=== PATIENT | male | born 1970 | race African-American/Black ===

== ENCOUNTER 2016-07-19 09:05 | Inpatient (IN) | payer OTHER ==
[2016-07-19 09:31] VITALS: BMI 24.8
--- NOTE | 2016-07-19 10:44 | HP ---
COWS - Scale Resting Pulse: 1= [place] 81-100 Sweatin= Chills/Flushing Restless Observation: 1= Difficult to Sit Still Pupil Size: 1= Pupils >than Normal Bone or Joint Aches: 2= Severe Diffuse Aches Runny Nose/ Eye Tearin= Runny Nose/Eyes GI Upset > 30mins: 3= Vomiting/Diarrhea Tremor Observation: 4= Gross Tremor/Twitching Yawning Observation: 1= 1-2x During Session Anxiety or Irritability: 2=Irritable/Anxious Goose Flesh Skin: 3=Piloerection COWS Score: 21 CIWA Score - CIWA Score Nausea/Vomitin Muscle Tremors: 4-Moderate,w/Arms Extend Anxiety: 2 Agitation: 1-Slight > Activity Paroxysmal Sweats: 3 Orientation: 0-Oriented Tacttile Disturbances: 0-None Auditory Disturbances: 0-None Visual Disturbances: 2-Mild Sensitivity Headache: 3-Moderate CIWA-Ar Total Score: 20 Admission ROS BHS - HPI Chief Complaint: "I need to get off of the drugs and stop using alcohol." Pt. is here to Detox from Alcohol and Heroin. Allergies/Adverse Reactions: Allergies Allergy/AdvReac Type Severity Reaction Status Date / Time No Known Allergies Allergy Verified 07/19/16 09:22 History of Present Illness: Pt. is here to Detox from Alcohol and Heroin. This is pt.'s first Detox [id number] at [facility]. Pt. has done detox at [facility] in past. Pt. also uses Cocaine on a daily basis. Exam Limitations: No Limitations - Ebola screening Have you traveled outside of the country in the last 21 days: No Have you had contact with anyone from an Ebola affected area: No Have you been sick,other than usual withdrawal symptoms: No Do you have a fever: No - Review of Systems Constitutional: Chills, Diaphoresis, Fever, Loss of Appetite, Malaise, Night Sweats, Changes in sleep, Unexplained wgt Loss EENT: reports: Tearing, Nose Congestion, Sinus Pressure, Dental Problems ( Toothache, lower Right side. Uncertain as to reason why.) Respiratory: reports: No Symptoms reported Cardiac: reports: No Symptoms Reported GI: reports: Constipated, Diarrhea, Nausea, Poor Appetite, Vomiting, Abdominal cramping : reports: No Symptoms Reported Musculoskeletal: reports: Back Pain Integumentary: reports: No Symptoms Reported Neuro: reports: Headache, Tremors Endocrine: reports: No Symptoms Reported Hematology: reports: No Symptoms Reported Psychiatric: reports: Judgement Intact, Mood/Affect Appropiate, Orientated x3, Anxious Other Systems: Reviewed and Negative Patient History - Patient Medical History Hx Anemia: No Hx Asthma: No Hx Chronic Obstructive Pulmonary Disease (COPD): No Hx Cancer: No Hx Cardiac Disorders: No Hx Congestive Heart Failure: No Hx Hypertension: No Hx Hypercholesterolemia: No Hx Pacemaker: No HX Cerebrovascular Accident: No Hx Seizures: No Hx Dementia: No Hx Diabetes: No Hx Gastrointestinal Disorders: No Hx Liver Disease: No Hx Genitourinary Disorders: No Hx Sexually Transmitted Disorders: No Hx Renal Disease (ESRD): No Hx Thyroid Disease: No Hx Human Immunodeficiency Virus (HIV): No (Last Tested: 2014: NEGATIVE.) Hx Hepatitis C: No (Does not recall if he was tested in past.) Hx Depression: No Hx Suicide Attempt: No (PATIENT DENIES CURRENT SI / HI.) Hx Bipolar Disorder: No Hx Schizophrenia: No - Patient Surgical History Past Surgical History: No Hx Neurologic Surgery: No Hx Cataract Extraction: No Hx Cardiac Surgery: No Hx Lung Surgery: No Hx Breast Surgery: No Hx Breast Biopsy: No Hx Abdominal Surgery: No Hx Appendectomy: No Hx Cholecystectomy: No Hx Genitourinary Surgery: No Hx Orthopedic Surgery: No Anesthesia Reaction: No - PPD History Previous Implant?: Yes Documented Results: Negative w/o proof Implanted On Prior [facility] Admission?: No PPD to be Administered?: Yes - Reproductive History Patient is a Female of Child Bearing Age (11 -55 yrs old): No (PATIENT IS MALE.) - Smoking Cessation Smoking history: Current every day smoker Have you smoked in the past 12 months: Yes Aproximately how many cigarettes per day: 15 Cigars Per Day: 0 Hx Chewing Tobacco Use: No Initiated information on smoking cessation: Yes 'Breaking Loose' booklet given: 07/19/16 (GIVEN ON UNIT.) - Substance & Tx. History Hx Alcohol Use: Yes Hx Substance Use: Yes Substance Use Type: Alcohol, Cocaine, Heroin Hx Substance Use Treatment: Yes (Previous Detox admission at [facility].) - Substances Abused Heroin Route: Inhalation Frequency: Daily Amount used: 10 bags Age of first use: 16 Date of Last Use: 07/18/16 Cocaine Route: Smoking Frequency: Daily Amount used: $20 Age of first use: 14 Date of Last Use: 07/18/16 Alcohol Route: Oral Frequency: Daily Amount used: vodka(2 pints)/beer(3 24oz cans) Family Disease History - Family Disease History Family Disease History: Diabetes: Grandparent, Father Admission Physical Exam [facility] - Vital Signs Vital Signs: Vital Signs - 24 hr 07/19/16 09:22 Temperature 96.7 F L Pulse Rate 92 H Respiratory 20 Rate Blood Pressure 146/94 - Physical General Appearance: Yes: No Apparent Distress, Nourished, Appropriately Dressed , Tremorous HEENTM: Yes: Hearing grossly Normal, Normocephalic, Normal Voice, MAGALI, Pharynx Normal, Nasal Congestion, Other (Toothache - Lower Right side - No swelling or signs of infection noted.) Respiratory: Yes: Chest Non-Tender, Lungs Clear, No Respiratory Distress Neck: Yes: No masses,lesions,Nodules, Supple, Trachea in good position Breast: Yes: Breast Exam Deferred Cardiology: Yes: Regular Rhythm, Regular Rate, S1, S2 Abdominal: Yes: Normal Bowel Sounds, Non Tender, Flat, Soft Genitourinary: Yes: Within Normal Limits Back: Yes: Decreased Range of Motion Musculoskeletal: Yes: Gait Steady, Back pain Extremities: Yes: Non-Tender, Tremors Neurological: Yes: Fully Oriented, Alert, Normal Mood/Affect, Normal Response Integumentary: Yes: Normal Color, Dry, Warm Lymphatic: Yes: Within Normal Limits - Diagnostic (1) Alcohol dependence with uncomplicated withdrawal Current Visit: Yes Status: Acute (2) Opioid dependence with withdrawal Current Visit: Yes Status: Acute (3) Cocaine dependence, uncomplicated Current Visit: Yes Status: Acute (4) Nicotine dependence Current Visit: Yes Status: Chronic Qualifiers: Nicotine product type: cigarettes Substance use status: uncomplicated Qualified Code(s): F17.210 - Nicotine dependence, cigarettes, uncomplicated (5) Toothache Current Visit: Yes Status: Acute Cleared for Admission [facility] - Detox or Rehab [facility] Level of Care: Medically Managed (ADVISED PATIENT TO FOLLOW-UP WITH FLIGHT DIRECTOR / REHAB MEDICAL PROVIDER AND DENTIST AFTER DISCHARGE FROM DETOX FOR GENERAL MEDICAL ASSESSMENT.) Detox Regimen/Protocol: Methadone/Librium [facility] Breath Alcohol Content Breath Alcohol Content: 0 Urine Drug Screen - Results Drug Screen Negative: No Urine Drug Screen Results: ARMEN-Cocaine, OPI-Opiates
[2016-07-19] MEDS ORDERED: MAG HYDROX/AL HYDROX/SIMETH 30 ML UNIT-DOSE CUP PO PRN (11:19)
[2016-07-19] MEDS ORDERED: chlordiazePOXIDE HCL 25 MG CAPSULE PO ONE (11:19)
[2016-07-19] MEDS ORDERED: IBUPROFEN 400 MG TABLET (FP) PO PRN (11:19)
[2016-07-19] MEDS ORDERED: MENTHOL/PHENOL 1 EACH UD MM PRN (11:19)
[2016-07-19] MEDS ORDERED: ACETAMINOPHEN 325 MG TABLET (FP) PO PRN (11:19)
[2016-07-19] MEDS ORDERED: LOPERAMIDE HCL 2 MG CAPSULE PO PRN (11:19)
[2016-07-19] MEDS ORDERED: chlordiazePOXIDE HCL 25 MG CAPSULE PO PRN (11:19)
[2016-07-19] MEDS ORDERED: MAGNESIUM HYDROX 2400MG/30ML ORAL SUSPENSION 30 ML CUP PO PRN (11:19)
[2016-07-19] MEDS ORDERED: METHADONE HCL 10 MG TABLET (FOR DETOX USE ONLY) PO ONE ×2 (11:19→23:00)
[2016-07-19] MEDS ORDERED: hydrOXYzine PAMOATE 50 MG CAPSULE (FP) PO PRN (11:19)
[2016-07-19] MEDS ORDERED: MAGNESIUM CITRATE 300 ML BOTTLE PO PRN (11:19)
[2016-07-19] MEDS ORDERED: NICOTINE POLACRILEX 2 MG GUM BUC PRN (11:19)
[2016-07-19] MEDS ORDERED: guaiFENesin/D-METHORPHAN HB 10 ML UNIT-DOSE CUPS PO PRN (11:19)
[2016-07-19] MEDS ORDERED: P-EPHED 60MG/TRIPROLIDI 2.5MG TABLET PO PRN (11:19)
[2016-07-19] MEDS: NICOTINE 21 MG/24 HOURS TOPICAL PATCH TD SCH (13:07)
[2016-07-19] MEDS: chlordiazePOXIDE HCL 25 MG CAPSULE PO SCH ×2 (17:53→22:26)
[2016-07-19 19:23] LABS: URINE APPEARANCE CLEAR; URINE BILIRUBIN NEGATIVE (NEGATIVE); URINE BLOOD NEGATIVE (NEGATIVE); URINE COLOR YELLOW; URINE GLUCOSE (UA) NEGATIVE (NEGATIVE); URINE KETONE NEGATIVE (NEGATIVE); URINE LEUK ESTERASE NEGATIVE (NEGATIVE); URINE NITRITE NEGATIVE (NEGATIVE); URINE UROBILINOGEN NEGATIVE E.U./dl (0.2-1.0)
[2016-07-19 19:27] LABS: URINE PROTEIN 1+ (NEGATIVE)
[2016-07-19 19:29] LABS: URINE MUCUS RARE; URINE RBC 5 /hpf (0-3); URINE WBC 2 /hpf (3-5)
[2016-07-19] MEDS: THIAMINE HCL 100 MG TABLET (FP) PO SCH (22:26)
[2016-07-19] MEDS: diphenhydrAMINE HCL 50 MG CAPSULE PO PRN (22:27)
[2016-07-20] MEDS: chlordiazePOXIDE HCL 25 MG CAPSULE PO SCH ×4 (05:56→22:35)
[2016-07-20 09:38] LABS: MCH 28.5 pg (25.7-33.7); MCHC 32.9 g/dl (32.0-35.9); MEAN CELL VOLUME 86.7 fl (80-96); MEAN PLT VOLUME 9.1 fl (7.5-11.1); PLATELET COUNT 252 K/MM3 (134-434); RDW 15.1 % (11.9-15.9); WHITE BLOOD COUNT 3.5 K/mm3 (4.0-10.0)
[2016-07-20 09:50] LABS: ALBUMIN 3.1 g/dl (3.4-5.0); BILIRUBIN,TOTAL 0.7 mg/dL (0.2-1.0); CALCIUM 8.5 mg/dL (8.5-10.1); CREATININE 1.3 mg/dL (0.7-1.3); TOT PROT 6.3 g/dl (6.4-8.2)
[2016-07-20] MEDS ORDERED: METHADONE HCL 10 MG TABLET (FOR DETOX USE ONLY) PO SCH (10:00)
[2016-07-20] MEDS: NICOTINE 21 MG/24 HOURS TOPICAL PATCH TD SCH (10:52)
[2016-07-20] MEDS: PRENATAL VITAMINS W/ FOLIC ACID TABLET (FP) PO SCH (10:52)
[2016-07-20 12:41] LABS: SICKLE CELL SCREEN NEGATIVE (NEGATIVE)
--- NOTE | 2016-07-20 13:00 | PN ---
[facility] CIWA - CIWA Score Nausea/Vomitin-Mild Nausea/No Vomiting Muscle Tremors: 4-Moderate,w/Arms Extend Anxiety: 4-Mod. Anxious/Guarded Agitation: 3 Paroxysmal Sweats: 3 Orientation: 0-Oriented Tacttile Disturbances: 0-None Auditory Disturbances: 0-None Visual Disturbances: 0-None Headache: 0-None Present CIWA-Ar Total Score: 15 BHS COWS - Scale Resting Pulse: 1= [place] 81-100 Sweatin=Flushed/Facial Moisture Restless Observation: 1= Difficult to Sit Still Pupil Size: 0= Normal to Room Light Bone or Joint Aches: 2= Severe Diffuse Aches Runny Nose/ Eye Tearin= Runny Nose/Eyes GI Upset > 30mins: 2= Nausea/Diarrhea Tremor Observation of Outstretched Hands: 2= Slight Tremor Visible Yawning Observation: 1= 1-2x During Session Anxiety or Irritability: 2=Irritable/Anxious Goose Flesh Skin: 0=Smooth Skin COWS Score: 15 [facility] Progress Note (SOAP) Subjective: Anxiety,tremors,sweating,interrupted sleep,restless,muscle aches Objective: 07/20/16 12:58 Vital Signs - 8 hr Vital Signs - 8 hr 07/20/16 10:54 Temperature 97 F L Pulse Rate 83 Respiratory 18 Rate Blood Pressure 137/90 Laboratory Last Values WBC 3.5 K/mm3 (4.0-10.0) L 07/20/16 07:00 RBC 4.78 M/mm3 (4.00-5.60) 07/20/16 07:00 Hgb 13.6 GM/dL (11.7-16.9) 07/20/16 07:00 Hct 41.5 % (35.4-49) 07/20/16 07:00 MCV 86.7 fl (80-96) 07/20/16 07:00 MCHC 32.9 g/dl (32.0-35.9) 07/20/16 07:00 RDW 15.1 % (11.9-15.9) 07/20/16 07:00 Plt Count 252 K/MM3 (134-434) 07/20/16 07:00 MPV 9.1 fl (7.5-11.1) 07/20/16 07:00 Sickle Cell Screen Negative (NEGATIVE) 07/20/16 07:00 Sodium 144 mmol/L (136-145) 07/20/16 07:00 Potassium 4.4 mmol/L (3.5-5.1) 07/20/16 07:00 Chloride 109 mmol/L (98-107) H 07/20/16 07:00 Carbon Dioxide 30 mmol/L (21-32) 07/20/16 07:00 Anion Gap 5 (8-16) L 07/20/16 07:00 BUN 18 mg/dL (7-18) 07/20/16 07:00 Creatinine 1.3 mg/dL (0.7-1.3) 07/20/16 07:00 Creat Clearance w eGFR 59.70 (>60) 07/20/16 07:00 Random Glucose 81 mg/dL (74-106) 07/20/16 07:00 Calcium 8.5 mg/dL (8.5-10.1) 07/20/16 07:00 Total Bilirubin 0.7 mg/dL (0.2-1.0) 07/20/16 07:00 AST 17 U/L (15-37) 07/20/16 07:00 ALT 18 U/L (12-78) 07/20/16 07:00 Alkaline Phosphatase 68 U/L (45-117) 07/20/16 07:00 Total Protein 6.3 g/dl (6.4-8.2) L 07/20/16 07:00 Albumin 3.1 g/dl (3.4-5.0) L 07/20/16 07:00 Urine Color Yellow 07/19/16 Unknown Urine Appearance Clear 07/19/16 Unknown Urine pH 5.0 (5.0-8.0) 07/19/16 Unknown Ur Specific [place] 1.028 (1.001-1.035) 07/19/16 Unknown Urine Protein 1+ (NEGATIVE) H 07/19/16 Unknown Urine Glucose (UA) Negative (NEGATIVE) 07/19/16 Unknown Urine Ketones Negative (NEGATIVE) 07/19/16 Unknown Urine Blood Negative (NEGATIVE) 07/19/16 Unknown Urine Nitrite Negative (NEGATIVE) 07/19/16 Unknown Urine Bilirubin Negative (NEGATIVE) 07/19/16 Unknown Urine Urobilinogen Negative E.U./dl (0.2-1.0) 07/19/16 Unknown Ur Leukocyte Esterase Negative (NEGATIVE) 07/19/16 Unknown Urine RBC 5 /hpf (0-3) 07/19/16 Unknown Urine WBC 2 /hpf (3-5) 07/19/16 Unknown Ur Epithelial Cells Rare /hpf (FEW) 07/19/16 Unknown Urine Mucus Rare 07/19/16 Unknown RPR Titer Nonreactive (NONREACTIVE) 07/20/16 07:00 labs noted Assessment: 07/20/16 12:59 Withdrawal sx. Plan: Continue detox
[2016-07-20] MEDS: THIAMINE HCL 100 MG TABLET (FP) PO SCH (22:35)
[2016-07-20] MEDS: diphenhydrAMINE HCL 50 MG CAPSULE PO PRN (22:35)
[2016-07-21] MEDS: chlordiazePOXIDE HCL 25 MG CAPSULE PO SCH ×2 (05:23→10:39)
[2016-07-21] MEDS: METHADONE HCL 5 MG TABLET (FOR DETOX USE ONLY) PO SCH (10:39)
[2016-07-21] MEDS: PRENATAL VITAMINS W/ FOLIC ACID TABLET (FP) PO SCH (10:39)
[2016-07-21] MEDS: NICOTINE 21 MG/24 HOURS TOPICAL PATCH TD SCH (10:39)
--- NOTE | 2016-07-21 10:58 | PN ---
[facility] CIWA - CIWA Score Nausea/Vomitin-No Nausea/No Vomiting Muscle Tremors: 3 Anxiety: 3 Agitation: 3 Paroxysmal Sweats: 3 Orientation: 0-Oriented Tacttile Disturbances: 1-Very Mild Itch/Numbness Auditory Disturbances: 0-None Visual Disturbances: 0-None Headache: 0-None Present CIWA-Ar Total Score: 13 BHS COWS - Scale Resting Pulse: 0= [place] 80 or Below Sweatin=Flushed/Facial Moisture Restless Observation: 1= Difficult to Sit Still Pupil Size: 0= Normal to Room Light Bone or Joint Aches: 2= Severe Diffuse Aches Runny Nose/ Eye Tearin= Runny Nose/Eyes GI Upset > 30mins: 2= Nausea/Diarrhea Tremor Observation of Outstretched Hands: 1= Tremor [place], Not Seen Yawning Observation: 1= 1-2x During Session Anxiety or Irritability: 2=Irritable/Anxious Goose Flesh Skin: 0=Smooth Skin COWS Score: 13 [facility] Progress Note (SOAP) Subjective: Anxiety,tremors,sweating,interrupted sleep,muscle aches Objective: 07/21/16 10:57 Vital Signs - 8 hr 07/21/16 07/21/16 07/21/16 03:32 06:14 09:42 Temperature 96.9 F L 95.4 F L Pulse Rate 65 76 Respiratory 18 18 18 Rate Blood Pressure 134/95 141/91 07/21/16 09:48 Temperature 95.4 F L Pulse Rate 76 Respiratory 18 Rate Blood Pressure 141/94 Laboratory Last Values WBC 3.5 K/mm3 (4.0-10.0) L 07/20/16 07:00 RBC 4.78 M/mm3 (4.00-5.60) 07/20/16 07:00 Hgb 13.6 GM/dL (11.7-16.9) 07/20/16 07:00 Hct 41.5 % (35.4-49) 07/20/16 07:00 MCV 86.7 fl (80-96) 07/20/16 07:00 MCHC 32.9 g/dl (32.0-35.9) 07/20/16 07:00 RDW 15.1 % (11.9-15.9) 07/20/16 07:00 Plt Count 252 K/MM3 (134-434) 07/20/16 07:00 MPV 9.1 fl (7.5-11.1) 07/20/16 07:00 Sickle Cell Screen Negative (NEGATIVE) 07/20/16 07:00 Sodium 144 mmol/L (136-145) 07/20/16 07:00 Potassium 4.4 mmol/L (3.5-5.1) 07/20/16 07:00 Chloride 109 mmol/L (98-107) H 07/20/16 07:00 Carbon Dioxide 30 mmol/L (21-32) 07/20/16 07:00 Anion Gap 5 (8-16) L 07/20/16 07:00 BUN 18 mg/dL (7-18) 07/20/16 07:00 Creatinine 1.3 mg/dL (0.7-1.3) 07/20/16 07:00 Creat Clearance w eGFR 59.70 (>60) 07/20/16 07:00 Random Glucose 81 mg/dL (74-106) 07/20/16 07:00 Calcium 8.5 mg/dL (8.5-10.1) 07/20/16 07:00 Total Bilirubin 0.7 mg/dL (0.2-1.0) 07/20/16 07:00 AST 17 U/L (15-37) 07/20/16 07:00 ALT 18 U/L (12-78) 07/20/16 07:00 Alkaline Phosphatase 68 U/L (45-117) 07/20/16 07:00 Total Protein 6.3 g/dl (6.4-8.2) L 07/20/16 07:00 Albumin 3.1 g/dl (3.4-5.0) L 07/20/16 07:00 Urine Color Yellow 07/19/16 Unknown Urine Appearance Clear 07/19/16 Unknown Urine pH 5.0 (5.0-8.0) 07/19/16 Unknown Ur Specific [place] 1.028 (1.001-1.035) 07/19/16 Unknown Urine Protein 1+ (NEGATIVE) H 07/19/16 Unknown Urine Glucose (UA) Negative (NEGATIVE) 07/19/16 Unknown Urine Ketones Negative (NEGATIVE) 07/19/16 Unknown Urine Blood Negative (NEGATIVE) 07/19/16 Unknown Urine Nitrite Negative (NEGATIVE) 07/19/16 Unknown Urine Bilirubin Negative (NEGATIVE) 07/19/16 Unknown Urine Urobilinogen Negative E.U./dl (0.2-1.0) 07/19/16 Unknown Ur Leukocyte Esterase Negative (NEGATIVE) 07/19/16 Unknown Urine RBC 5 /hpf (0-3) 07/19/16 Unknown Urine WBC 2 /hpf (3-5) 07/19/16 Unknown Ur Epithelial Cells Rare /hpf (FEW) 07/19/16 Unknown Urine Mucus Rare 07/19/16 Unknown RPR Titer Nonreactive (NONREACTIVE) 07/20/16 07:00 Hepatitis C Antibody 0.1 s/co ratio (0.0-0.9) 07/19/16 07:00 labs noted Assessment: 07/21/16 10:58 Withdrawal sx. Plan: Continue detox
[2016-07-21] MEDS ORDERED: cloNIDine HCL 0.1 MG TABLET PO ONE (14:26)
[2016-07-21] MEDS: chlordiazePOXIDE 5 MG CAPSULE PO SCH ×2 (17:22→22:42)
[2016-07-21] MEDS: THIAMINE HCL 100 MG TABLET (FP) PO SCH (22:42)
[2016-07-21] MEDS: cloNIDine HCL 0.1 MG TABLET PO SCH (22:42)
--- NOTE | 2016-07-21 22:53 | EKG ---
Test Reason : Blood Pressure : / mmHG Vent. Rate : 075 BPM Atrial Rate : 075 BPM P-R Int : 176 ms QRS Dur : 084 ms QT Int : 386 ms P-R-T Axes : 064 052 -07 degrees QTc Int : 431 ms NORMAL SINUS RHYTHM NONSPECIFIC T WAVE ABNORMALITY INFEROLATERAL LEADS ABNORMAL ECG NO PREVIOUS ECGS AVAILABLE Confirmed by FIOR CHUADHARI, ALENA ([id number]) on 07/21/2016 10:52:37 PM Referred By: Confirmed By:ALENA CHILDRESS MD
[2016-07-22] MEDS: chlordiazePOXIDE 5 MG CAPSULE PO SCH ×2 (05:19→10:44)
[2016-07-22] MEDS: METHADONE HCL 5 MG TABLET (FOR DETOX USE ONLY) PO SCH (10:44)
[2016-07-22] MEDS: PRENATAL VITAMINS W/ FOLIC ACID TABLET (FP) PO SCH (10:44)
[2016-07-22] MEDS: cloNIDine HCL 0.1 MG TABLET PO SCH ×2 (10:44→22:37)
[2016-07-22] MEDS: NICOTINE 21 MG/24 HOURS TOPICAL PATCH TD SCH (10:46)
--- NOTE | 2016-07-22 15:47 | PN ---
[facility] Progress Note (SOAP) Subjective: Sweating,interrupted sleep,restless Objective: 07/22/16 15:46 Vital Signs - 8 hr 07/22/16 07/22/16 09:32 13:13 Temperature 97.0 F L 97.8 F Pulse Rate 72 77 Respiratory 18 18 Rate Blood Pressure 131/82 120/79 Laboratory Tests 07/19/16 07/19/16 07/20/16 07:00 Unknown 07:00 WBC 3.5 L RBC 4.78 Hgb 13.6 Hct 41.5 MCV 86.7 MCHC 32.9 RDW 15.1 Plt Count 252 MPV 9.1 Sickle Cell Screen Negative Sodium Potassium Chloride Carbon Dioxide Anion Gap BUN Creatinine Creat Clearance w eGFR Random Glucose Calcium Total Bilirubin AST ALT Alkaline Phosphatase Total Protein Albumin Urine Color Yellow Urine Appearance Clear Urine pH 5.0 Ur Specific [place] 1.028 Urine Protein 1+ H Urine Glucose (UA) Negative Urine Ketones Negative Urine Blood Negative Urine Nitrite Negative Urine Bilirubin Negative Urine Urobilinogen Negative Ur Leukocyte Esterase Negative Urine RBC 5 Urine WBC 2 Ur Epithelial Cells Rare Urine Mucus Rare RPR Titer Hepatitis C Antibody 0.1 07/20/16 07/20/16 07:00 07:00 WBC RBC Hgb Hct MCV MCHC RDW Plt Count MPV Sickle Cell Screen Sodium 144 Potassium 4.4 Chloride 109 H Carbon Dioxide 30 Anion Gap 5 L BUN 18 Creatinine 1.3 Creat Clearance w eGFR 59.70 Random Glucose 81 Calcium 8.5 Total Bilirubin 0.7 AST 17 ALT 18 Alkaline Phosphatase 68 Total Protein 6.3 L Albumin 3.1 L Urine Color Urine Appearance Urine pH Ur Specific [place] Urine Protein Urine Glucose (UA) Urine Ketones Urine Blood Urine Nitrite Urine Bilirubin Urine Urobilinogen Ur Leukocyte Esterase Urine RBC Urine WBC Ur Epithelial Cells Urine Mucus RPR Titer Nonreactive Hepatitis C Antibody labs noted Assessment: 07/22/16 15:46 Withdrawal sx Plan: Continue detox
[2016-07-22] MEDS: chlordiazePOXIDE HCL 10 MG CAPSULE PO SCH ×2 (17:46→22:37)
[2016-07-22] MEDS: THIAMINE HCL 100 MG TABLET (FP) PO SCH (22:37)
[2016-07-22] MEDS: diphenhydrAMINE HCL 50 MG CAPSULE PO PRN (22:38)
[2016-07-23] MEDS: chlordiazePOXIDE HCL 10 MG CAPSULE PO SCH ×2 (05:21→10:47)
[2016-07-23] MEDS ORDERED: METHADONE HCL 10 MG TABLET (FOR DETOX USE ONLY) PO SCH (10:00)
[2016-07-23] MEDS: cloNIDine HCL 0.1 MG TABLET PO SCH ×2 (10:46→22:40)
[2016-07-23] MEDS: PRENATAL VITAMINS W/ FOLIC ACID TABLET (FP) PO SCH (10:47)
[2016-07-23] MEDS: NICOTINE 21 MG/24 HOURS TOPICAL PATCH TD SCH (10:47)
--- NOTE | 2016-07-23 10:53 | PN ---
[facility] Progress Note (SOAP) Subjective: Sweating,interrupted sleep,restless Objective: 07/23/16 10:52 Vital Signs - 8 hr 07/23/16 07/23/16 07/23/16 03:30 06:30 09:16 Temperature 96.9 F L 98.3 F Pulse Rate 67 89 Respiratory 18 16 18 Rate Blood Pressure 127/81 135/82 Laboratory Last Values WBC 3.5 K/mm3 (4.0-10.0) L 07/20/16 07:00 RBC 4.78 M/mm3 (4.00-5.60) 07/20/16 07:00 Hgb 13.6 GM/dL (11.7-16.9) 07/20/16 07:00 Hct 41.5 % (35.4-49) 07/20/16 07:00 MCV 86.7 fl (80-96) 07/20/16 07:00 MCHC 32.9 g/dl (32.0-35.9) 07/20/16 07:00 RDW 15.1 % (11.9-15.9) 07/20/16 07:00 Plt Count 252 K/MM3 (134-434) 07/20/16 07:00 MPV 9.1 fl (7.5-11.1) 07/20/16 07:00 Sickle Cell Screen Negative (NEGATIVE) 07/20/16 07:00 Sodium 144 mmol/L (136-145) 07/20/16 07:00 Potassium 4.4 mmol/L (3.5-5.1) 07/20/16 07:00 Chloride 109 mmol/L (98-107) H 07/20/16 07:00 Carbon Dioxide 30 mmol/L (21-32) 07/20/16 07:00 Anion Gap 5 (8-16) L 07/20/16 07:00 BUN 18 mg/dL (7-18) 07/20/16 07:00 Creatinine 1.3 mg/dL (0.7-1.3) 07/20/16 07:00 Creat Clearance w eGFR 59.70 (>60) 07/20/16 07:00 Random Glucose 81 mg/dL (74-106) 07/20/16 07:00 Calcium 8.5 mg/dL (8.5-10.1) 07/20/16 07:00 Total Bilirubin 0.7 mg/dL (0.2-1.0) 07/20/16 07:00 AST 17 U/L (15-37) 07/20/16 07:00 ALT 18 U/L (12-78) 07/20/16 07:00 Alkaline Phosphatase 68 U/L (45-117) 07/20/16 07:00 Total Protein 6.3 g/dl (6.4-8.2) L 07/20/16 07:00 Albumin 3.1 g/dl (3.4-5.0) L 07/20/16 07:00 Urine Color Yellow 07/19/16 Unknown Urine Appearance Clear 07/19/16 Unknown Urine pH 5.0 (5.0-8.0) 07/19/16 Unknown Ur Specific [place] 1.028 (1.001-1.035) 07/19/16 Unknown Urine Protein 1+ (NEGATIVE) H 07/19/16 Unknown Urine Glucose (UA) Negative (NEGATIVE) 07/19/16 Unknown Urine Ketones Negative (NEGATIVE) 07/19/16 Unknown Urine Blood Negative (NEGATIVE) 07/19/16 Unknown Urine Nitrite Negative (NEGATIVE) 07/19/16 Unknown Urine Bilirubin Negative (NEGATIVE) 07/19/16 Unknown Urine Urobilinogen Negative E.U./dl (0.2-1.0) 07/19/16 Unknown Ur Leukocyte Esterase Negative (NEGATIVE) 07/19/16 Unknown Urine RBC 5 /hpf (0-3) 07/19/16 Unknown Urine WBC 2 /hpf (3-5) 07/19/16 Unknown Ur Epithelial Cells Rare /hpf (FEW) 07/19/16 Unknown Urine Mucus Rare 07/19/16 Unknown RPR Titer Nonreactive (NONREACTIVE) 07/20/16 07:00 Hepatitis C Antibody 0.1 s/co ratio (0.0-0.9) 07/19/16 07:00 labs noted Assessment: 07/23/16 10:52 Withdrawal sx. Plan: Continue detox
[2016-07-23] MEDS: THIAMINE HCL 100 MG TABLET (FP) PO SCH (22:40)
[2016-07-23] MEDS: diphenhydrAMINE HCL 50 MG CAPSULE PO PRN (22:41)
[2016-07-24] MEDS ORDERED: METHADONE HCL 5 MG TABLET (FOR DETOX USE ONLY) PO SCH (06:00)
[2016-07-24 06:59] VITALS: BP 134/85; PULSE 73; TEMP 96.1
[2016-07-24] MEDS: cloNIDine HCL 0.1 MG TABLET PO SCH (09:03)
[2016-07-24] MEDS: PRENATAL VITAMINS W/ FOLIC ACID TABLET (FP) PO SCH (09:03)
[2016-07-24] MEDS: NICOTINE 21 MG/24 HOURS TOPICAL PATCH TD SCH (09:04)
--- NOTE | 2016-07-24 09:35 | DS ---
[facility] Detox Discharge Summary Admission Date: 07/19/16 Discharge Date: 07/24/16 - History Present History: Alcohol Dependence, Cannabis Dependence, Cocaine Dependence, Opioid Dependence Additional Comments: DETOX COMPLETED.ALERT O X 3. NAD. PT INSTRUCTED TO F/U WITH PMD FOR MEDICAL MANAGEMENT OF HEALTH. Pertinent Past History: DENIED ON ADMISSION. - Physical Exam Results Vital Signs: Vital Signs Temperature 96.1 F L 07/24/16 06:58 Pulse Rate 73 07/24/16 06:58 Respiratory Rate 18 07/24/16 06:58 Blood Pressure 134/85 07/24/16 06:58 O2 Sat by Pulse Oximetry (%) Pertinent Admission Physical Exam Findings: WITHDRAWAL SX - Treatment Hospital Course: Detox Protocol Followed, Detoxed Safely, Responded well, Discharged Condition Good - Medication Discharge Medications: Ambulatory Orders Clonidine HCl [Catapres -] 0.1 mg PO BID #30 tablet 07/24/16 - AMA Did Patient Leave Against Medical Advice: No
== END 2016-07-24 09:05 | disposition home or self-care (01) | DRG 773 ==
LOC: YASAS 09:05 → Y3N 10:43
PROVIDERS: ADMIT Internal Medicine; ATTEND Internal Medicine
PROC: HZ2ZZZZ Detoxification Services for Substance Abuse Treatment (ICD-10-PCS; principal; 2016-07-24)
DX: F11.23 Opioid dependence with withdrawal (principal); F10.230 Alcohol dependence with withdrawal, uncomplicated; F14.20 Cocaine dependence, uncomplicated; F17.210 Nicotine dependence, cigarettes, uncomplicated; K08.89 Other specified disorders of teeth and supporting structures
CPT/HCPCS: 36415; 80053; 81003; 81015; 85027; 85660; 86593; 93005; 93010

== ENCOUNTER 2017-02-04 13:23 | Inpatient (IN) | payer OTHER ==
[2017-02-04 13:43] VITALS: BMI 23.1
--- NOTE | 2017-02-04 15:20 | HP ---
COWS - Scale Resting Pulse: 0= [place] 80 or Below Sweatin= Chills/Flushing Restless Observation: 3= Extraneous Movement Pupil Size: 0= Normal to Room Light Bone or Joint Aches: 2= Severe Diffuse Aches Runny Nose/ Eye Tearin= Runny Nose/Eyes GI Upset > 30mins: 0= None Tremor Observation: 1= Tremor Otto, Not Seen Yawning Observation: 1= 1-2x During Session Anxiety or Irritability: 2=Irritable/Anxious Goose Flesh Skin: 0=Smooth Skin COWS Score: 12 CIWA Score - CIWA Score Nausea/Vomitin-No Nausea/No Vomiting Muscle Tremors: 4-Moderate,w/Arms Extend Anxiety: 4-Mod. Anxious/Guarded Agitation: 3 Paroxysmal Sweats: 1-Minimal Palms Moist Orientation: 1-Uncertain about Date Tacttile Disturbances: 3-Moderate Itch/Numb/Burn Auditory Disturbances: 0-None Visual Disturbances: 0-None Headache: 0-None Present CIWA-Ar Total Score: 16 Admission ROS S - HPI Chief Complaint: DETOX TX FOR HEROIN AND ALCOHOL DEPENDENCE Allergies/Adverse Reactions: Allergies Allergy/AdvReac Type Severity Reaction Status Date / Time No Known Allergies Allergy Verified 07/19/16 09:22 History of Present Illness: 46 Y/O AA/MALE WITH A HX OF ALCOHOL AND HEROIN DEPENDENCE SEEKING DETOX TX. Exam Limitations: No Limitations, Intoxication (PT CAME IN WITH VANESSA 0.00 BUT WENT TO THE CORNER STORE, CAME BACK AND BLEW A VANESSA 0.065.) - Ebola screening Have you traveled outside of the country in the last 21 days: No Have you had contact with anyone from an Ebola affected area: No Have you been sick,other than usual withdrawal symptoms: No Do you have a fever: No - Review of Systems Constitutional: Chills, Loss of Appetite, Night Sweats, Changes in sleep, Unintentional Wgt. Loss EENT: reports: Tearing, Nose Congestion Respiratory: reports: No Symptoms reported Cardiac: reports: No Symptoms Reported GI: reports: Constipated, Diarrhea, Nausea, Poor Appetite, Poor Fluid Intake, Vomiting : reports: Dysuria Musculoskeletal: reports: Back Pain, Joint Pain, Muscle Pain Integumentary: reports: No Symptoms Reported Neuro: reports: Headache, Numbness, Tingling, Unsteady Gait Endocrine: reports: No Symptoms Reported Hematology: reports: No Symptoms Reported, Other Psychiatric: reports: Orientated x3 Other Systems: Reviewed and Negative Patient History - Patient Medical History Hx Anemia: No Hx Asthma: No Hx Chronic Obstructive Pulmonary Disease (COPD): No Hx Cancer: No Hx Cardiac Disorders: No Hx Congestive Heart Failure: No Hx Hypertension: No Hx Hypercholesterolemia: No Hx Pacemaker: No HX Cerebrovascular Accident: No Hx Seizures: No Hx Dementia: No Hx Diabetes: No Hx Gastrointestinal Disorders: No Hx Liver Disease: No Hx Genitourinary Disorders: No Hx Sexually Transmitted Disorders: No (DENIES) Hx Renal Disease (ESRD): No Hx Thyroid Disease: No Hx Human Immunodeficiency Virus (HIV): No ( NEGATIVE HX.) Hx Hepatitis C: No Hx Depression: No Hx Suicide Attempt: No (PATIENT DENIES SI / HI.) Hx Bipolar Disorder: No Hx Schizophrenia: No - Patient Surgical History Past Surgical History: No Hx Neurologic Surgery: No Hx Cataract Extraction: No Hx Cardiac Surgery: No Hx Lung Surgery: No Hx Breast Surgery: No Hx Breast Biopsy: No Hx Abdominal Surgery: No Hx Appendectomy: No Hx Cholecystectomy: No Hx Genitourinary Surgery: No Hx Orthopedic Surgery: No Anesthesia Reaction: No - PPD History Previous Implant?: Yes Implanted On Prior [facility] Admission?: No Date: 07/21/16 PPD to be Administered?: No - Reproductive History Patient is a Female of Child Bearing Age (11 -55 yrs old): No (MALE) Patient : (N/A) - Smoking Cessation Smoking history: Current every day smoker Have you smoked in the past 12 months: Yes Aproximately how many cigarettes per day: 15 Cigars Per Day: 0 Hx Chewing Tobacco Use: No Initiated information on smoking cessation: Yes 'Breaking Loose' booklet given: 02/04/17 - Substance & Tx. History Hx Alcohol Use: Yes (BEER/VODKA) Hx Substance Use: Yes (HEROIN/COCAINE) Substance Use Type: Alcohol, Cocaine, Heroin Hx Substance Use Treatment: Yes (LAST TX AT [facility]) - Substances Abused BEER/VODKA Route: Oral Frequency: Daily Amount used: 5 24oz/ 1/2 PT Age of first use: 16 Date of Last Use: 02/04/17 Heroin Route: Inhalation Frequency: Daily Amount used: 10 BAGS Age of first use: 18 Date of Last Use: 02/03/17 Cocaine Route: Smoking Frequency: Daily Amount used: $40 Age of first use: 18 Date of Last Use: 02/03/17 Family Disease History - Family Disease History Family Disease History: Diabetes: Grandparent, Father Admission Physical Exam [facility] - Vital Signs Vital Signs: Vital Signs - 24 hr 02/04/17 13:40 Temperature 97.4 F L Pulse Rate 80 Respiratory 20 Rate Blood Pressure 148/90 - Physical General Appearance: Yes: Moderate Distress, Alcohol on Breath, Intoxicated ( SECOND READING VANESSA = 0.065( PT CAME BACK FROM THE CORNER STORE).), Irritable, Anxious HEENTM: Yes: EOMI, Normocephalic, MAGALI, Pharynx Normal Respiratory: Yes: Chest Non-Tender, Lungs Clear, Normal Breath Sounds, No Respiratory Distress Neck: Yes: No masses,lesions,Nodules, Supple, Trachea in good position Breast: Yes: Breast Exam Deferred Cardiology: Yes: Regular Rhythm, Regular Rate, S1, S2 Abdominal: Yes: Normal Bowel Sounds, Non Tender, Soft Genitourinary: Yes: Other (N/A) Back: Yes: Within Normal Limits Musculoskeletal: Yes: full range of Motion, Gait Steady Extremities: Yes: Normal Range of Motion, Non-Tender Neurological: Yes: manager acute II-XII NML intact, Fully Oriented, Alert, Motor Strength 5/5 Integumentary: Yes: Dry, Warm Lymphatic: Yes: Within Normal Limits - Diagnostic (1) Alcohol dependence with uncomplicated withdrawal Current Visit: Yes Status: Acute (2) Cocaine dependence, uncomplicated Current Visit: Yes Status: Acute (3) Opioid dependence with withdrawal Current Visit: Yes Status: Acute (4) Nicotine dependence Current Visit: No Status: Chronic Qualifiers: Nicotine product type: cigarettes Substance use status: uncomplicated Qualified Code(s): F17.210 - Nicotine dependence, cigarettes, uncomplicated; F17.210 - Nicotine dependence, cigarettes, uncomplicated Cleared for Admission [facility] - Detox or Rehab [facility] Level of Care: Medically Managed Detox Regimen/Protocol: Methadone/Librium [facility] Breath Alcohol Content Breath Alcohol Content: 0 Urine Drug Screen - Results Drug Screen Negative: No Urine Drug Screen Results: ARMEN-Cocaine, OPI-Opiates
[2017-02-04] MEDS ORDERED: P-EPHED 60MG/TRIPROLIDI 2.5MG TABLET PO PRN (15:44)
[2017-02-04] MEDS ORDERED: MAGNESIUM HYDROX 2400MG/30ML ORAL SUSPENSION 30 ML CUP PO PRN (15:44)
[2017-02-04] MEDS ORDERED: MAG HYDROX/AL HYDROX/SIMETH 30 ML UNIT-DOSE CUP PO PRN (15:44)
[2017-02-04] MEDS ORDERED: MAGNESIUM CITRATE 300 ML BOTTLE PO PRN (15:44)
[2017-02-04] MEDS ORDERED: chlordiazePOXIDE HCL 25 MG CAPSULE PO PRN (15:44)
[2017-02-04] MEDS ORDERED: guaiFENesin/D-METHORPHAN HB 10 ML UNIT-DOSE CUPS PO PRN (15:44)
[2017-02-04] MEDS ORDERED: ACETAMINOPHEN 325 MG TABLET (FP) PO PRN (15:44)
[2017-02-04] MEDS ORDERED: MENTHOL/PHENOL 1 EACH UD MM PRN (15:44)
[2017-02-04] MEDS ORDERED: NICOTINE POLACRILEX 2 MG GUM BC PRN (15:44)
[2017-02-04] MEDS ORDERED: hydrOXYzine PAMOATE 25 MG CAPSULE (FP) PO PRN (15:44)
[2017-02-04] MEDS ORDERED: diphenhydrAMINE HCL 50 MG CAPSULE PO PRN (15:44)
[2017-02-04] MEDS ORDERED: LOPERAMIDE HCL 2 MG CAPSULE PO PRN (15:44)
[2017-02-04] MEDS ORDERED: METHADONE HCL 10 MG TABLET (FOR DETOX USE ONLY) PO ONE ×2 (18:30→23:00)
[2017-02-04] MEDS: NICOTINE 14 MG/24 HOURS TOPICAL PATCH TD SCH (19:15)
[2017-02-04] MEDS: cloNIDine HCL 0.1 MG TABLET PO SCH (22:55)
[2017-02-04] MEDS: THIAMINE HCL 100 MG TABLET (FP) PO SCH (23:07)
[2017-02-04] MEDS: chlordiazePOXIDE HCL 25 MG CAPSULE PO SCH (23:09)
[2017-02-04 23:23] LABS: URINE APPEARANCE CLEAR; URINE BILIRUBIN NEGATIVE (NEGATIVE); URINE BLOOD NEGATIVE (NEGATIVE); URINE COLOR YELLOW; URINE GLUCOSE (UA) NEGATIVE (NEGATIVE); URINE KETONE NEGATIVE (NEGATIVE); URINE NITRITE NEGATIVE (NEGATIVE); URINE PROTEIN NEGATIVE (NEGATIVE); URINE UROBILINOGEN NEGATIVE mg/dL (0.2-1.0)
[2017-02-05] MEDS: chlordiazePOXIDE HCL 25 MG CAPSULE PO SCH ×4 (06:27→22:45)
[2017-02-05 09:44] LABS: MCH 28.3 pg (25.7-33.7); MCHC 32.8 g/dl (32.0-35.9); MEAN CELL VOLUME 86.3 fl (80-96); MEAN PLT VOLUME 9.1 fl (7.5-11.1); PLATELET COUNT 250 K/MM3 (134-434); RDW 14.1 % (11.9-15.9); WHITE BLOOD COUNT 4.2 K/mm3 (4.0-10.0)
--- NOTE | 2017-02-05 09:54 | PN ---
[facility] CIWA - CIWA Score Nausea/Vomitin Muscle Tremors: 3 Anxiety: 3 Agitation: 2 Paroxysmal Sweats: 1-Minimal Palms Moist Orientation: 0-Oriented Tacttile Disturbances: 1-Very Mild Itch/Numbness Auditory Disturbances: 1-Very Mild Visual Disturbances: 0-None Headache: 2-Mild CIWA-Ar Total Score: 16 [facility] COWS - Scale Resting Pulse: 0= [place] 80 or Below Sweatin= Chills/Flushing Restless Observation: 3= Extraneous Movement Pupil Size: 1= Pupils >than Normal Bone or Joint Aches: 2= Severe Diffuse Aches Runny Nose/ Eye Tearin= Runny Nose/Eyes GI Upset > 30mins: 2= Nausea/Diarrhea Tremor Observation of Outstretched Hands: 2= Slight Tremor Visible Yawning Observation: 1= 1-2x During Session Anxiety or Irritability: 2=Irritable/Anxious Goose Flesh Skin: 0=Smooth Skin COWS Score: 16 [facility] Progress Note (SOAP) Subjective: alert,irritable,anxious,interrupted sleep,pain in the body,back,tremor Objective: 02/05/17 09:51 Vital Signs Temperature 98.1 F 02/05/17 09:48 Pulse Rate 82 02/05/17 09:48 Respiratory Rate 18 02/05/17 09:48 Blood Pressure 150/106 02/05/17 09:48 O2 Sat by Pulse Oximetry (%) ekg nsr,inverted t in 3 no chest pain,no sob,no dizziness Laboratory Last Values WBC 4.2 K/mm3 (4.0-10.0) 02/05/17 07:00 RBC 4.80 M/mm3 (4.00-5.60) 02/05/17 07:00 Hgb 13.6 GM/dL (11.7-16.9) 02/05/17 07:00 Hct 41.4 % (35.4-49) 02/05/17 07:00 MCV 86.3 fl (80-96) 02/05/17 07:00 MCH 28.3 pg (25.7-33.7) 02/05/17 07:00 MCHC 32.8 g/dl (32.0-35.9) 02/05/17 07:00 RDW 14.1 % (11.9-15.9) 02/05/17 07:00 Plt Count 250 K/MM3 (134-434) 02/05/17 07:00 MPV 9.1 fl (7.5-11.1) 02/05/17 07:00 Urine Color Yellow 02/04/17 23:00 Urine Appearance Clear 02/04/17 23:00 Urine pH 5.0 (5.0-8.0) 02/04/17 23:00 Urine Protein Negative (NEGATIVE) 02/04/17 23:00 Urine Glucose (UA) Negative (NEGATIVE) 02/04/17 23:00 Urine Ketones Negative (NEGATIVE) 02/04/17 23:00 Urine Blood Negative (NEGATIVE) 02/04/17 23:00 Urine Nitrite Negative (NEGATIVE) 02/04/17 23:00 Urine Bilirubin Negative (NEGATIVE) 02/04/17 23:00 Urine Urobilinogen Negative mg/dL (0.2-1.0) 02/04/17 23:00 02/05/17 09:52 labs pending Assessment: 02/05/17 09:53 withdrawal symptom Plan: continue detox
[2017-02-05] MEDS ORDERED: METHADONE HCL 10 MG TABLET (FOR DETOX USE ONLY) PO SCH (10:00)
[2017-02-05 10:33] LABS: URINE LEUK ESTERASE Negative (NEGATIVE)
[2017-02-05 10:41] LABS: ALK PHOS 83 U/L (45-117); ANION GAP 4 (8-16); BILIRUBIN,TOTAL 0.9 mg/dL (0.2-1.0); CALCIUM 8.7 mg/dL (8.5-10.1); CO2 31 mmol/L (21-32); CREATININE 1.2 mg/dL (0.7-1.3); GLUCOSE,RANDOM 86 mg/dL (74-106); SGOT/AST 17 U/L (15-37); SGPT/ALT 18 U/L (12-78); TOT PROT 6.5 g/dl (6.4-8.2)
[2017-02-05] MEDS: cloNIDine HCL 0.1 MG TABLET PO SCH ×2 (10:48→22:45)
[2017-02-05] MEDS: PRENATAL VITAMINS W/ FOLIC ACID TABLET (FP) PO SCH (10:48)
[2017-02-05] MEDS: NICOTINE 14 MG/24 HOURS TOPICAL PATCH TD SCH (10:48)
[2017-02-05] MEDS: THIAMINE HCL 100 MG TABLET (FP) PO SCH (22:45)
[2017-02-06] MEDS: chlordiazePOXIDE HCL 25 MG CAPSULE PO SCH ×3 (08:02→17:56)
[2017-02-06] MEDS: PRENATAL VITAMINS W/ FOLIC ACID TABLET (FP) PO SCH (11:09)
[2017-02-06] MEDS: cloNIDine HCL 0.1 MG TABLET PO SCH ×2 (11:09→22:40)
[2017-02-06] MEDS: NICOTINE 14 MG/24 HOURS TOPICAL PATCH TD SCH (11:10)
[2017-02-06] MEDS: METHADONE HCL 5 MG TABLET (FOR DETOX USE ONLY) PO SCH (11:10)
--- NOTE | 2017-02-06 11:57 | PN ---
S CIWA - CIWA Score Nausea/Vomitin Muscle Tremors: 3 Anxiety: 3 Agitation: 2 Paroxysmal Sweats: 3 Orientation: 0-Oriented Tacttile Disturbances: 0-None Auditory Disturbances: 2-Mild Harshness/Frighten Visual Disturbances: 1-Very Mild Sensitivity Headache: 1-Very Mild CIWA-Ar Total Score: 17 [facility] COWS - Scale Resting Pulse: 1= [place] 81-100 Sweatin= Chills/Flushing Restless Observation: 3= Extraneous Movement Pupil Size: 2= Moderately Dilated Bone or Joint Aches: 1= Mild Discomfort Runny Nose/ Eye Tearin= Runny Nose/Eyes GI Upset > 30mins: 1= Stomach Cramp Tremor Observation of Outstretched Hands: 2= Slight Tremor Visible Yawning Observation: 1= 1-2x During Session Anxiety or Irritability: 2=Irritable/Anxious Goose Flesh Skin: 0=Smooth Skin COWS Score: 16 S Progress Note (SOAP) Objective: 02/06/17 11:57 Laboratory Tests 02/04/17 02/05/17 02/05/17 23:00 07:00 07:00 WBC 4.2 RBC 4.80 Hgb 13.6 Hct 41.4 MCV 86.3 MCH 28.3 MCHC 32.8 RDW 14.1 Plt Count 250 MPV 9.1 Sodium 141 Potassium 4.1 Chloride 106 Carbon Dioxide 31 Anion Gap 4 L BUN 19 H Creatinine 1.2 Creat Clearance w eGFR > 60 Random Glucose 86 Calcium 8.7 Total Bilirubin 0.9 D AST 17 ALT 18 Alkaline Phosphatase 83 D Total Protein 6.5 Albumin 3.0 L Urine Color Yellow Urine Appearance Clear Urine pH 5.0 Ur Specific [place] 1.025 Urine Protein Negative Urine Glucose (UA) Negative Urine Ketones Negative Urine Blood Negative Urine Nitrite Negative Urine Bilirubin Negative Urine Urobilinogen Negative Ur Leukocyte Esterase Negative RPR Titer 02/05/17 07:00 WBC RBC Hgb Hct MCV MCH MCHC RDW Plt Count MPV Sodium Potassium Chloride Carbon Dioxide Anion Gap BUN Creatinine Creat Clearance w eGFR Random Glucose Calcium Total Bilirubin AST ALT Alkaline Phosphatase Total Protein Albumin Urine Color Urine Appearance Urine pH Ur Specific [place] Urine Protein Urine Glucose (UA) Urine Ketones Urine Blood Urine Nitrite Urine Bilirubin Urine Urobilinogen Ur Leukocyte Esterase RPR Titer Nonreactive Vital Signs - 24 hr 10/02/05/17 02/05/17 14:28 18:07 23:48 Temperature 98.1 F 98.2 F Pulse Rate 90 62 70 Respiratory 19 20 18 Rate Blood Pressure 136/87 104/98 153/118 02/05/17 02/06/17 02/06/17 23:57 00:30 03:30 Temperature 98.2 F Pulse Rate 70 Respiratory 18 18 18 Rate Blood Pressure 133/79 02/06/17 02/06/17 06:33 11:11 Temperature 97.5 F L 98.1 F Pulse Rate 63 87 Respiratory 18 18 Rate Blood Pressure 165/86 122/90 Assessment: 02/06/17 11:57 withdrawal Plan: cont detox protocol
[2017-02-06] MEDS: IBUPROFEN 400 MG TABLET (FP) PO PRN ×2 (14:01→22:40)
[2017-02-06] MEDS: chlordiazePOXIDE 5 MG CAPSULE PO SCH (22:40)
[2017-02-06] MEDS: THIAMINE HCL 100 MG TABLET (FP) PO SCH (22:40)
[2017-02-07] MEDS: chlordiazePOXIDE 5 MG CAPSULE PO SCH ×3 (06:10→17:22)
[2017-02-07] MEDS ORDERED: IBUPROFEN 400 MG TABLET (FP) PO PRN (09:57)
--- NOTE | 2017-02-07 09:59 | PN ---
[facility] Progress Note (SOAP) Subjective: Back pain,muscle spasm,sweating,interrupted sleep,restless Objective: 02/07/17 09:57 Vital Signs - 8 hr 02/07/17 02/07/17 03:30 06:00 Temperature 97.7 F Pulse Rate 65 Respiratory 18 18 Rate Blood Pressure 135/63 Laboratory Tests 02/04/17 02/05/17 02/05/17 23:00 07:00 07:00 WBC 4.2 RBC 4.80 Hgb 13.6 Hct 41.4 MCV 86.3 MCH 28.3 MCHC 32.8 RDW 14.1 Plt Count 250 MPV 9.1 Sodium 141 Potassium 4.1 Chloride 106 Carbon Dioxide 31 Anion Gap 4 L BUN 19 H Creatinine 1.2 Creat Clearance w eGFR > 60 Random Glucose 86 Calcium 8.7 Total Bilirubin 0.9 D AST 17 ALT 18 Alkaline Phosphatase 83 D Total Protein 6.5 Albumin 3.0 L Urine Color Yellow Urine Appearance Clear Urine pH 5.0 Ur Specific [place] 1.025 Urine Protein Negative Urine Glucose (UA) Negative Urine Ketones Negative Urine Blood Negative Urine Nitrite Negative Urine Bilirubin Negative Urine Urobilinogen Negative Ur Leukocyte Esterase Negative RPR Titer 02/05/17 07:00 WBC RBC Hgb Hct MCV MCH MCHC RDW Plt Count MPV Sodium Potassium Chloride Carbon Dioxide Anion Gap BUN Creatinine Creat Clearance w eGFR Random Glucose Calcium Total Bilirubin AST ALT Alkaline Phosphatase Total Protein Albumin Urine Color Urine Appearance Urine pH Ur Specific [place] Urine Protein Urine Glucose (UA) Urine Ketones Urine Blood Urine Nitrite Urine Bilirubin Urine Urobilinogen Ur Leukocyte Esterase RPR Titer Nonreactive labs noted Assessment: 02/07/17 09:58 Withdrawal sx. Plan: Continue detox
[2017-02-07] MEDS: METHADONE HCL 5 MG TABLET (FOR DETOX USE ONLY) PO SCH (10:37)
[2017-02-07] MEDS: cloNIDine HCL 0.1 MG TABLET PO SCH (10:37)
[2017-02-07] MEDS: PRENATAL VITAMINS W/ FOLIC ACID TABLET (FP) PO SCH (10:37)
[2017-02-07] MEDS: NICOTINE 14 MG/24 HOURS TOPICAL PATCH TD SCH (10:38)
[2017-02-07] MEDS ORDERED: CYCLOBENZAPRINE HCL 10 MG TABLET (FP) PO SCH (14:00)
[2017-02-07 18:10] VITALS: BP 127/78; PULSE 91; TEMP 98.4
--- NOTE | 2017-02-07 21:35 | PN ---
[facility] Progress Note Note: INFORMED BY NURSE CLIENT IS SIGNING OUT. CLIENT HAS BEEN ATTEMPTING TO SIGN OUT FOR THE PAST SEVERAL HOURS WITH MULTIPLE INTERVENTIONS TO TRY TO ENCOURAGE CLIENT TO COMPLETE TXMENT. CLIENT AT THIS TIME HAS DECIDED HE NO LONGER WANTS TO COMPLETE TX. HE IS MEDICALLY STABLE, VSS. A/O X3 NAD. LEFT AMA
--- NOTE | 2017-02-07 21:40 | DS ---
[facility] Detox Discharge Summary Admission Date: 02/04/17 Discharge Date: 02/07/17 - History Present History: Alcohol Dependence, Cocaine Dependence, Opioid Dependence Pertinent Past History: NICOTINE DEPENDENCE - Physical Exam Results Vital Signs: Vital Signs Temperature 98.4 F 02/07/17 18:09 Pulse Rate 91 H 02/07/17 18:09 Respiratory Rate 20 02/07/17 18:09 Blood Pressure 127/78 02/07/17 18:09 O2 Sat by Pulse Oximetry (%) Laboratory Tests 02/04/17 02/05/17 02/05/17 23:00 07:00 07:00 WBC 4.2 RBC 4.80 Hgb 13.6 Hct 41.4 MCV 86.3 MCH 28.3 MCHC 32.8 RDW 14.1 Plt Count 250 MPV 9.1 Sodium 141 Potassium 4.1 Chloride 106 Carbon Dioxide 31 Anion Gap 4 L BUN 19 H Creatinine 1.2 Creat Clearance w eGFR > 60 Random Glucose 86 Calcium 8.7 Total Bilirubin 0.9 D AST 17 ALT 18 Alkaline Phosphatase 83 D Total Protein 6.5 Albumin 3.0 L Urine Color Yellow Urine Appearance Clear Urine pH 5.0 Ur Specific [place] 1.025 Urine Protein Negative Urine Glucose (UA) Negative Urine Ketones Negative Urine Blood Negative Urine Nitrite Negative Urine Bilirubin Negative Urine Urobilinogen Negative Ur Leukocyte Esterase Negative RPR Titer 02/05/17 07:00 WBC RBC Hgb Hct MCV MCH MCHC RDW Plt Count MPV Sodium Potassium Chloride Carbon Dioxide Anion Gap BUN Creatinine Creat Clearance w eGFR Random Glucose Calcium Total Bilirubin AST ALT Alkaline Phosphatase Total Protein Albumin Urine Color Urine Appearance Urine pH Ur Specific [place] Urine Protein Urine Glucose (UA) Urine Ketones Urine Blood Urine Nitrite Urine Bilirubin Urine Urobilinogen Ur Leukocyte Esterase RPR Titer Nonreactive Pertinent Admission Physical Exam Findings: WITHDRAWAL SX'S - Treatment Hospital Course: Discharged Condition Good - Medication Discharge Medications: Ambulatory Orders NK [No Known Home Medication] 02/04/17 - Diagnosis (1) Alcohol dependence with uncomplicated withdrawal Status: Chronic (2) Cocaine dependence, uncomplicated Status: Chronic (3) Nicotine dependence Status: Chronic Qualifiers: Nicotine product type: cigarettes Substance use status: in withdrawal Qualified Code(s): F17.213 - Nicotine dependence, cigarettes, with withdrawal; F17.213 - Nicotine dependence, cigarettes, with withdrawal (4) Opioid dependence with withdrawal Status: Chronic - AMA Did Patient Leave Against Medical Advice: Yes
[2017-02-07] MEDS ORDERED: chlordiazePOXIDE HCL 10 MG CAPSULE PO SCH (23:00)
[2017-02-08] MEDS ORDERED: METHADONE HCL 10 MG TABLET (FOR DETOX USE ONLY) PO SCH (10:00)
--- NOTE | 2017-02-08 14:26 | EKG ---
Test Reason : Blood Pressure : / mmHG Vent. Rate : 062 BPM Atrial Rate : 062 BPM P-R Int : 166 ms QRS Dur : 082 ms QT Int : 406 ms P-R-T Axes : 057 058 002 degrees QTc Int : 412 ms NORMAL SINUS RHYTHM NONSPECIFIC ST ABNORMALITY POOR R WAVE PROGRESSION Confirmed by BENJA CARVALHO MD ([id number]) on 02/05/2017 9:57:59 AM Also confirmed by BENJA CARVALHO MD ([id number]), senior editor MERLIN DIEZ ([id number]) on 02/08/2017 2:25:51 PM Referred By: Confirmed By:BENJA CARVALHO MD
[2017-02-09] MEDS ORDERED: METHADONE HCL 5 MG TABLET (FOR DETOX USE ONLY) PO SCH (06:00)
== END 2017-02-07 20:25 | disposition left against medical advice (07) | DRG 770 ==
LOC: YASAS 13:23 → Y6N 17:57
PROVIDERS: ADMIT Internal Medicine; ATTEND Internal Medicine
PROC: HZ2ZZZZ Detoxification Services for Substance Abuse Treatment (ICD-10-PCS; principal; 2017-02-04)
DX: F11.23 Opioid dependence with withdrawal (principal); F10.230 Alcohol dependence with withdrawal, uncomplicated; F14.20 Cocaine dependence, uncomplicated; F17.213 Nicotine dependence, cigarettes, with withdrawal
CPT/HCPCS: 36415; 80053; 81003; 85027; 86593; 93005; 93010